=== PATIENT | female | born 2000 | race Hispanic/Latino ===

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

== ENCOUNTER → 2022-01-12 09:55 | Outpatient (CLI) | payer OTHER, MEDICAID, SELFPAY ==
[2021-09-16 09:42] VITALS: BMI 25.2
[2022-01-12 18:56] LABS: Add Manual Diff / Slide Review NO; Basophils Absolute Auto 0 /uL (0-100); Basophils Percent Auto 0.5 % (0-2); Eosinophils Absolute Auto 100 /uL (0-450); Hematocrit 33.8 % (36-46); Lymphocytes Absolute Auto 1100 /uL (1100-4500); Lymphocytes Percent Auto 27.4 % (25-40); Mean Corpuscular HGB Conc 32.5 % (30-36); Mean Corpuscular Hemoglobin 25.8 PG (26-34); Mean Corpuscular Volume 79.2 fL (80-100); Monocytes Absolute Auto 300 /uL (0-900); Monocytes Percent Auto 8.3 % (3-14); Neutrophils Absolute Auto 2500 /uL (1500-7000); Neutrophils Percent Auto 61.8 % (50-75); Platelet Count 201 X10^3/uL (150-400); Red Blood Cell Count 4.26 X10^6/uL (4.0-5.2); Red Cell Distribution Width 16.5 % (11.6-14.8)
[2022-01-12 18:58] LABS: Alanine Aminotransferase 9 IU/L (<35); Albumin 3.9 g/dL (3.5-5.0); Albumin Globulin Ratio 1.4 (1.0-2.8); Alkaline Phosphatase 54 U/L (38-126); Aspartate Aminotransferase 24 IU/L (14-36); BUN Creatinine Ratio 14.5 (6-22); Bilirubin Total 0.5 mg/dL (0.2-1.3); Blood Urea Nitrogen 8 mg/dL (7-17); Carbon Dioxide 23 mmol/L (22-32); Chloride 107 mmol/L (98-107); Estimated Glomerular Filt Rate > 60 mL/min (>60); Globulin 2.7 g/dL (1.7-4.1); Glucose 85 mg/dL (70-100); HEMOLYSIS < 15 (0-50); Potassium 4.1 mmol/L (3.4-5.1); Sodium 138 mmol/L (137-145); Total Protein 6.6 g/dL (6.3-8.2)
[2022-01-12 19:25] LABS: TSH w/ Reflex to FT4 1.29 uIU/mL (0.47-4.68)
== END ==
PROVIDERS: PCP Physician Assistant; Visit Provider Physician Assistant
DX: R42 Dizziness and giddiness (principal); R63.0 Anorexia; R63.4 Abnormal weight loss
CPT/HCPCS: 80053; 84443; 85025

== ENCOUNTER → 2022-04-08 13:59 | Outpatient (CLI) | payer OTHER, MEDICAID, SELFPAY ==
[2021-09-16 09:42] VITALS: BMI 25.2
[2022-04-08 20:37] LABS: Hematocrit 35.5 % (36-46); Hemoglobin 11.5 g/dL (12.0-16.0); Mean Corpuscular HGB Conc 32.4 % (30-36); Mean Corpuscular Hemoglobin 25.2 PG (26-34); Mean Corpuscular Volume 77.9 fL (80-100); Platelet Count 256 X10^3/uL (150-400); Red Blood Cell Count 4.55 X10^6/uL (4.0-5.2); Red Cell Distribution Width 18.4 % (11.6-14.8)
[2022-04-08 20:42] LABS: Pregnancy Test Serum,Qual Negative (Negative)
[2022-04-08 20:43] LABS: HEMOLYSIS 20 (0-50); Iron 42 ug/dL (37-170)
[2022-04-08 20:55] LABS: Percent Iron Saturation 10 % (15-50); Total Iron Binding Capacity 432 ug/dL (265-497); Transferrin 325 mg/dL (206-381)
[2022-04-08 21:15] LABS: Ferritin 6 ng/mL (6-137)
[2022-04-08 22:12] LABS: Neutrophils Absolute Manual 3660 /uL (3000-5900); RBC Morphology Normal Morphology; Total Cells Counted 100
== END ==
PROVIDERS: PCP Physician Assistant; Visit Provider Physician Assistant
DX: D64.9 Anemia, unspecified (principal)
CPT/HCPCS: 82728; 83540; 83550; 84703; 85025

== ENCOUNTER → 2022-05-12 11:50 | Outpatient (CLI) | payer OTHER, MEDICAID, SELFPAY ==
[2021-09-16 09:42] VITALS: BMI 25.2
[2022-05-12 19:30] LABS: Add Manual Diff / Slide Review NO; Basophils Absolute Auto 0 /uL (0-100); Basophils Percent Auto 0.2 % (0-2); Eosinophils Absolute Auto 0 /uL (0-450); Eosinophils Percent Auto 0.4 % (2-4); Hemoglobin 10.9 g/dL (12.0-16.0); Lymphocytes Absolute Auto 1100 /uL (1100-4500); Lymphocytes Percent Auto 18.8 % (25-40); Mean Corpuscular Hemoglobin 25.4 PG (26-34); Mean Corpuscular Volume 76.9 fL (80-100); Monocytes Absolute Auto 400 /uL (0-900); Monocytes Percent Auto 6.7 % (3-14); Neutrophils Absolute Auto 4400 /uL (1500-7000); Neutrophils Percent Auto 73.9 % (50-75); Platelet Count 202 X10^3/uL (150-400); Red Blood Cell Count 4.29 X10^6/uL (4.0-5.2); Red Cell Distribution Width 19.1 % (11.6-14.8); White Blood Cell Count 5.9 X10^3/uL (4.5-11.0)
[2022-05-12 20:22] LABS: HCG Quantitative /Beta subunit 7095 mIU/mL
== END ==
PROVIDERS: PCP Physician Assistant; Visit Provider Physician Assistant
DX: R10.2 Pelvic and perineal pain (principal); D64.9 Anemia, unspecified; Z34.90 Encounter for supervision of normal pregnancy, unspecified, unspecified trimester
CPT/HCPCS: 81002; 81025; 84702; 85025; 87086

== ENCOUNTER → 2022-05-13 13:04 | Outpatient (CLI) | payer OTHER, MEDICAID, SELFPAY ==
[2021-09-16 09:42] VITALS: BMI 25.2
[2022-05-13 19:50] LABS: HCG Quantitative /Beta subunit 8893 mIU/mL
== END ==
PROVIDERS: PCP Physician Assistant; Visit Provider Physician Assistant
DX: R10.2 Pelvic and perineal pain (principal); Z3A.01 Less than 8 weeks gestation of pregnancy
CPT/HCPCS: 84702

== ENCOUNTER → 2022-05-19 09:05 | Outpatient (CLI) | payer OTHER, MEDICAID, SELFPAY ==
[2021-09-16 09:42] VITALS: BMI 25.2
[2022-05-20 20:25] LABS: HCG Quantitative /Beta subunit 11694 mIU/mL
== END ==
PROVIDERS: PCP Physician Assistant; Visit Provider Physician Assistant
DX: R10.2 Pelvic and perineal pain (principal); Z3A.01 Less than 8 weeks gestation of pregnancy
CPT/HCPCS: 84702

== ENCOUNTER 2022-05-22 23:42 | Emergency (ER) | payer OTHER, MEDICAID, SELFPAY ==
[2021-09-16 09:42] VITALS: BMI 25.2
[2022-05-22 23:59] VITALS: O2SAT 97
[2022-05-23] VITALS: BP 115/70; PULSE 79; O2SAT 100
[2022-05-23 00:30] LABS: Appearance Urine UA CLEAR; Bilirubin Urine UA NEGATIVE (NEGATIVE); Color Urine UA YELLOW; Glucose Urine UA NEGATIVE (Negative); Ketones Urine UA NEGATIVE (NEGATIVE); Leukocyte Esterase Urine UA NEGATIVE (NEGATIVE); Nitrite Urine UA NEGATIVE (Negative); Occult Blood Urine UA 3+ (Negative); Protein Urine UA NEGATIVE (Negative); Specific Gravity Urine UA <=1.005 (1.000-1.035); Urobilinogen Urine UA 0.2 E.U./dL (0.2)
[2022-05-23 00:39] LABS: Add Manual Diff / Slide Review NO; Basophils Absolute Auto 0 /uL (0-100); Basophils Percent Auto 0.5 % (0-2); Eosinophils Absolute Auto 100 /uL (0-450); Eosinophils Percent Auto 0.6 % (2-4); Hematocrit 35.4 % (36-46); Hemoglobin 11.9 g/dL (12.0-16.0); Lymphocytes Absolute Auto 2400 /uL (1100-4500); Lymphocytes Percent Auto 24.8 % (25-40); Mean Corpuscular HGB Conc 33.6 % (30-36); Mean Corpuscular Hemoglobin 25.8 PG (26-34); Monocytes Absolute Auto 900 /uL (0-900); Monocytes Percent Auto 8.7 % (3-14); Neutrophils Absolute Auto 6400 /uL (1500-7000); Neutrophils Percent Auto 65.4 % (50-75); Platelet Count 216 X10^3/uL (150-400); Red Cell Distribution Width 19.5 % (11.6-14.8); White Blood Cell Count 9.8 X10^3/uL (4.5-11.0)
--- NOTE | 2022-05-23 00:44 | ED_ITS ---
HPI - General Adult General Chief complaint: OB/Uterine Contractions Stated complaint: 6 weeks /spotting Time Seen by Provider: 05/23/22 00:00 Source: patient Mode of arrival: Ambulatory History of Present Illness HPI narrative: Patient is a at approximately 6 weeks EGA who is here for evaluation of vaginal bleeding last night. She has had prior evaluations by her primary doctor with beta hCG testing. She was told that everything looked ?okay ?this evening she went to use the restroom and had quite a bit of vaginal bleeding. She states it was as much as a menstrual cycle. She did have to wear a pad. She did go to the bathroom just prior to my evaluation she states that everything seems to have stopped. Some minor abdominal discomfort. No fevers. No urinary symptoms. She states she has had some issues with constipation recently. Related Data Previous Rx's Medication Instructions Recorded norgestimate-ethinyl estradiol 1 tab PO DAILY #28 tabs 09/14/21 0.18 mg/0.215mg/0.25mg-35 mcg(28)tablet (Ortho Tri-Cyclen (28)) sertraline 100 mg tablet 100 mg PO DAILY #30 tabs 09/14/21 Allergies Allergy/AdvReac Type Severity Reaction Status Date / Time No Known Drug Allergies Allergy Verified 01/12/22 09:04 Review of Systems Review of Systems ROS Unobtainable: All systems reviewed & are unremarkable except as noted in HPI and below Patient History Medical History Depression Suicidal ideation Surgical History H/O thumb surgery Family History Grandfather Myocardial infarction Grandmother Diabetes mellitus Father Medical history unknown Mother Alive and well Social History household members: family and other Smoking Status: Never smoker alcohol intake: former Smoking Status: Never smoker Substance Use Type: does not use Exam Initial Vital Signs Initial Vital Signs: Vital Signs Pulse Oximetry 97 05/22/22 23:59 HENMT Head: normal to inspection and normocephalic Resp Effort & Inspection: normal respiratory effort Cardio Rate: regular rate GI Inspection: normal to inspection Skin General: no rashes or lesions noted Neuro General: patient alert, patient awake and moves all extremities Extrem General: normal to inspection and capillary refill normal Course Orders Ordered: ED Orders 05/23/22 00:04 Urinalysis and Microscopic Stat 05/23/22 00:15 ABO RH Type Stat Basic Metabolic Panel Stat Complete Blood Count AUTO DIFF Stat HCG Quantitative /Beta subunit Stat Vital Signs Vital signs: Vital Signs - 8 hr 05/22/22 23:59 05/23/22 00:00 05/23/22 00:00 Temperature Pulse Rate 79 Respiratory Rate Blood Pressure 115/70 Pulse Oximetry 97 100 Oxygen Delivery Method 05/23/22 01:52 Temperature 98.4 F Pulse Rate 77 Respiratory Rate 16 Blood Pressure 111/77 Pulse Oximetry 99 Oxygen Delivery Method Room Air Medical Decision Making Lab Data Lab results reviewed: Yes I reviewed the patient's lab results. Result diagrams: 05/23/22 00:15 05/23/22 00:15 Labs: Lab Results 05/23/22 05/23/22 05/23/22 Range/Units 00:04 00:15 00:15 WBC 9.8 (4.5-11.0) X10^3/uL RBC 4.60 (4.0-5.2) X10^6/uL Hgb 11.9 L (12.0-16.0) g/dL Hct 35.4 L (36-46) % MCV 77.0 L (80-100) fL MCH 25.8 L (26-34) PG MCHC 33.6 (30-36) % RDW 19.5 H (11.6-14.8) % Plt Count 216 (150-400) X10^3/uL Neut % (Auto) 65.4 (50-75) % Lymph % (Auto) 24.8 L (25-40) % [place] % (Auto) 8.7 (3-14) % Eos % (Auto) 0.6 L (2-4) % Baso % (Auto) 0.5 (0-2) % Neut # (Auto) 6400 (9868-1440) /uL Lymph # (Auto) 2400 (2541-8117) /uL [place] # (Auto) 900 (0-900) /uL Eos # (Auto) 100 (0-450) /uL Baso # (Auto) 0 (0-100) /uL Sodium 138 (137-145) mmol/L Potassium 3.5 (3.4-5.1) mmol/L Chloride 104 (98-107) mmol/L Carbon Dioxide 23 (22-32) mmol/L BUN 5 L (7-17) mg/dL Creatinine 0.45 L (0.52-1.04) mg/dL Estimated GFR > 60 (>60) mL/min BUN/Creatinine Ratio 11.1 (6-22) Glucose 90 (70-100) mg/dL Calcium 9.4 (8.4-10.2) mg/dL HCG, Quant 7724.7 mIU/mL Urine Color Yellow Urine Appearance Clear Urine pH 7.0 (4.5-8.0) Ur Specific [place] <=1.005 (1.000-1.035) Urine Protein Negative (Negative) Urine Glucose (UA) Negative (Negative) g/dL Urine Ketones Negative (NEGATIVE) Urine Occult Blood 3+ H (Negative) Urine Nitrate Negative (Negative) Urine Bilirubin Negative (NEGATIVE) Urine Urobilinogen 0.2 (0.2) E.U./dL Ur Leukocyte Esterase Negative (NEGATIVE) Urine RBC None seen (0-5/HPF) Urine WBC None seen (0-5/HPF) Urine Bacteria None seen (None) Ur Culture Indicated? Cult not indicated Blood Type 05/23/22 Range/Units 00:15 WBC (4.5-11.0) X10^3/uL RBC (4.0-5.2) X10^6/uL Hgb (12.0-16.0) g/dL Hct (36-46) % MCV (80-100) fL MCH (26-34) PG MCHC (30-36) % RDW (11.6-14.8) % Plt Count (150-400) X10^3/uL Neut % (Auto) (50-75) % Lymph % (Auto) (25-40) % [place] % (Auto) (3-14) % Eos % (Auto) (2-4) % Baso % (Auto) (0-2) % Neut # (Auto) (5509-0543) /uL Lymph # (Auto) (5987-4773) /uL [place] # (Auto) (0-900) /uL Eos # (Auto) (0-450) /uL Baso # (Auto) (0-100) /uL Sodium (137-145) mmol/L Potassium (3.4-5.1) mmol/L Chloride (98-107) mmol/L Carbon Dioxide (22-32) mmol/L BUN (7-17) mg/dL Creatinine (0.52-1.04) mg/dL Estimated GFR (>60) mL/min BUN/Creatinine Ratio (6-22) Glucose (70-100) mg/dL Calcium (8.4-10.2) mg/dL HCG, Quant mIU/mL Urine Color Urine Appearance Urine pH (4.5-8.0) Ur Specific [place] (1.000-1.035) Urine Protein (Negative) Urine Glucose (UA) (Negative) g/dL Urine Ketones (NEGATIVE) Urine Occult Blood (Negative) Urine Nitrate (Negative) Urine Bilirubin (NEGATIVE) Urine Urobilinogen (0.2) E.U./dL Ur Leukocyte Esterase (NEGATIVE) Urine RBC (0-5/HPF) Urine WBC (0-5/HPF) Urine Bacteria (None) Ur Culture Indicated? Blood Type O Positive Urine Dip Bedside Urine Glucose Negative Bedside Urine Bilirubin - Negative Bedside Urine Ketone - Negative Urine Specific [place] 1.010 Bedside Urine Occult Blood +++ Bedside Urine pH 7 Bedside Urine Protein - Negative Bedside Urine Urobilinogen - Negative Bedside Urine Nitrite - Negative Bedside Urine Leukocytes - Negative Esterase Point of care testing: Urine Dip Bedside Urine Glucose Negative Bedside Urine Bilirubin - Negative Bedside Urine Ketone - Negative Urine Specific [place] 1.010 Bedside Urine Occult Blood +++ Bedside Urine pH 7 Bedside Urine Protein - Negative Bedside Urine Urobilinogen - Negative Bedside Urine Nitrite - Negative Bedside Urine Leukocytes - Negative Esterase [facility] Narrative Medical decision making narrative: Review of the patient's beta hCG shows that the last 1 was greater than 11,000. Today it is 7000. She is a benign exam. She is Rh positive. She is no longer having any bleeding. Had a discussion with her and family at bedside. We did discuss that according to the beta HCG levels in her presenting symptoms the concern is for a miscarriage. She already has an appointment with her primary doctor on Tuesday of next week which is a good point that there can be a repeat beta hCG level at that point for trending to 0. She was given return preca utions. She expressed understanding and agreement. Discharge Plan Departure Patient Disposition: Home Clinical Impression: Threatened miscarriage Instructions: DI for Miscarriage, DI for Vaginal Bleeding During Activity Restrictions/Additional Instructions: Your blood type is O positive. I do recommend that you keep your appointment with your doctor that is already scheduled for Tuesday for a follow-up. Return to the emergency department for any new or worsening symptoms. Prescriptions: No Action sertraline 100 mg tablet 100 mg PO DAILY Qty: 30 5RF norgestimate-ethinyl estradiol [Ortho Tri-Cyclen (28)] 0.18/0.215/0.25 mg-35 mcg (28) tablet 1 tab PO DAILY Qty: 28 11RF Referrals: Gretta Wilkins PA-C [Primary Care Provider] - Visit Report Forms: Patient Portal/API
[2022-05-23 00:50] LABS: BUN Creatinine Ratio 11.1 (6-22); Blood Urea Nitrogen 5 mg/dL (7-17); Calcium 9.4 mg/dL (8.4-10.2); Carbon Dioxide 23 mmol/L (22-32); Chloride 104 mmol/L (98-107); Estimated Glomerular Filt Rate > 60 mL/min (>60); Glucose 90 mg/dL (70-100); HEMOLYSIS < 15 (0-50); Potassium 3.5 mmol/L (3.4-5.1); Sodium 138 mmol/L (137-145)
[2022-05-23 01:06] LABS: HCG Quantitative /Beta subunit 7724.7 mIU/mL
[2022-05-23 01:41] LABS: Bacteria Urine None Seen; Culture Indicated Urine Cult Not Indicated; RBC Urine None Seen (0-5/HPF); WBC Urine None Seen (0-5/HPF)
[2022-05-23 01:52] VITALS: BP 111/77; PULSE 77; RESP 16; TEMP 36.9; O2SAT 99
== END 2022-05-23 02:07 | disposition home or self-care (01) ==
PROVIDERS: Emergency Provider Emergency Medicine; PCP Physician Assistant
DX: O20.0 Threatened abortion (principal); Z3A.01 Less than 8 weeks gestation of pregnancy
CPT/HCPCS: 80048; 81001; 81003; 84702; 85025; 86900; 86901; 99282; 99283

== ENCOUNTER → 2022-05-25 09:07 | Outpatient (CLI) | payer OTHER, MEDICAID, SELFPAY ==
[2021-09-16 09:42] VITALS: BMI 25.2
[2022-05-25 20:16] LABS: HCG Quantitative /Beta subunit 7585.9 mIU/mL
== END ==
PROVIDERS: PCP Physician Assistant; Visit Provider Physician Assistant
DX: O20.0 Threatened abortion (principal)
CPT/HCPCS: 84702

== ENCOUNTER 2022-05-26 14:08 | Emergency (ER) | payer OTHER, MEDICAID, SELFPAY ==
[2021-09-16 09:42] VITALS: BMI 25.2
[2022-05-26 14:48] VITALS: BP 107/70; PULSE 77; RESP 16; TEMP 36.7; O2SAT 99; BMI 20.1
--- NOTE | 2022-05-26 15:27 | DI.US.S_ITS ---
PROCEDURE: US PELVIC COMPLETE INDICATIONS: PAIN, BLEEDING; RECENT SAB TECHNIQUE: Real-time scanning was performed of the pelvic organs, with image documentation. Additional endovaginal scanning was necessary due to incomplete visualization of the adnexal and endometrial structures by transabdominal scanning. COMPARISON: None. FINDINGS: Uterus: 7.6 x 5.2 x 5.8 cm. The endometrium is heterogeneous measuring up to 22 mm. No definite vascularity. Ovaries: The right ovary measures 1.7 x 2.7 x 1.3 cm. Volume is 3 cc. The left ovary measures 4.6 x 5.4 x 3.8 cm, the volume is 49 cc. There is a simple appearing cyst that measures up to 4.9 cm. Per current guidelines in a premenopausal patient, no dedicated follow-up is necessary. Other: No pathologic free abdominal or pelvic fluid. IMPRESSION: Heterogeneous thickened endometrium up to 2.2 cm. Differential includes large blood clots or retained products of conception, with underlying thickened endometrium. Although lack of vascular Doppler signal is reassuring, gynecologic and/or imaging follow-up is still suggested depending on clinical context. We strive to produce accurate, complete, and clear reports of imaging services. To assist us in improving patient care, this report was composed using standard report templates and voice recognition software. Therefore, it may contain abnormal punctuation, insertions and/or omissions. Occasional wrong-word or sound-alike substitutions may occur. Though we review the report and make efforts to correct it, we do recommend that the report be read carefully in proper context to recognize any text inaccuracies. Dictated by: Yuriy Spicer M.D. on 05/26/2022 at 16:31 Approved by: Yuriy Spicer M.D. on 05/26/2022 at 16:37
[2022-05-26 17:19] VITALS: PULSE 95
--- NOTE | 2022-05-26 17:24 | ED.PREGNANCY ---
HPI - General Chief complaint: Vaginal Bleeding Stated complaint: possible misscarriage refered by doctor Time Seen by Provider: 05/26/22 16:58 Source: patient Mode of arrival: Ambulatory History of Present Illness HPI Narrative: Patient is a 22-year-old female presenting today with some mild abdominal cramping. She is known to be . She was seen evaluated here on May 21 approximately 6 weeks EGA. At that time she had a large amount of bleeding but did then seemed to stop. She has since had some spotting. HCG on May 21 was 8000. HCG has actually been decreasing since yesterday it was rechecked and is 7500. She has only had some minor spotting. No significant bleeding she had minimal cramping today. No fever or chills. No nausea vomiting or other symptoms. She was called by Ob today no pelvic ultrasound has yet to be done hCG is still elevated concerned that patient may have a possible ectopic. Related Data Previous Rx's Medication Instructions Recorded sertraline 100 mg tablet 100 mg PO DAILY #30 tabs 09/14/21 Allergies Allergy/AdvReac Type Severity Reaction Status Date / Time No Known Drug Allergies Allergy Verified 05/25/22 08:44 Review of Systems Review of Systems Narrative: GENERAL: Denies chills, fatigue, malaise, fever, sweats, travel HEENT: Denies sinus pain, ear pain, sore throat, difficulty swallowing, neck pain RESPIRATORY: Denies dyspnea, cough, wheezing, hemoptysis, sputum. CARDIOVASCULAR: Denies chest pain, palpitations, orthopnea, edema GASTROINTESTINAL: Denies nausea, vomiting, abdominal pain, diarrhea, constipation, melena. : Denies dysuria, frequency, incontinence, hematuria, urinary retention, flank pain. [employer]: See HPI MUSCULOSKELETAL: Denies weakness, joint pain, or bony pain SKIN: No rash, no erythema, no pruritus NEUROLOGIC: Denies weakness, dizziness, headache, numbness, change in speech, confusion PSYCHIATRIC: No concerning psychosocial issues. 12 point review of systems is negative except for those stated above and HPI Exam Initial Vital Signs Initial Vital Signs: Vital Signs Temperature 98.1 F 05/26/22 14:48 Pulse Rate 77 05/26/22 14:48 Respiratory Rate 16 05/26/22 14:48 Blood Pressure 107/70 05/26/22 14:48 Pulse Oximetry 99 05/26/22 14:48 Oxygen Delivery Method 05/26/22 14:48 GENERAL: Alert well female appears very well no acute distress HEENT: Head atraumatic,EOMI, pupils reactive CARDIOVASCULAR: Regular rate and rhythm without murmurs, rubs or gallops. RESPIRATORY: Breath sounds equal bilaterally, no wheezes rales or rhonchi. ABDOMEN: Soft, nontender. Normoactive bowel sounds all 4 quadrants. No guarding or rebound. EXTREMITIES: Normal range of motion, no clubbing or edema. Neurovascularly intact NEUROLOGICAL: Alert and oriented x4.Normal gait and speech. SKIN: Warm, dry, no laceration, no petechiae, no rashes or lesions. Course Orders Ordered: ED Orders 05/26/22 15:27 US pelvic complete Stat 05/26/22 17:40 Ictotest Urine Stat Urine Culture Stat Urine Microscopic Stat Vital Signs Vital signs: Vital Signs - 8 hr 05/26/22 14:48 05/26/22 17:19 Temperature 98.1 F Pulse Rate 77 95 H Respiratory Rate 16 Blood Pressure 107/70 Pulse Oximetry 99 Oxygen Delivery Method Room Air MDM - OB/Uterine Contractions Lab Data Labs: Lab Results 05/26/22 Range/Units 17:40 Ur Bilirubin Confirm Negative (Negative) Urine RBC 0-1/hpf (0-5/HPF) Urine WBC 0-1/hpf (0-5/HPF) Ur Squamous Epith Cells 10-30 /hpf H D (0-5/HPF) Urine Bacteria None seen (None) Ur Culture Indicated? Cult not indicated Urine Dip Bedside Urine Glucose Negative Bedside Urine Bilirubin + 1 Bedside Urine Ketone + 15 Urine Specific [place] 1.020 Bedside Urine Occult Blood +++ Bedside Urine pH 6.0 Bedside Urine Protein + 30 Bedside Urine Urobilinogen - Negative Bedside Urine Nitrite - Negative Bedside Urine Leukocytes + 70 Esterase Imaging Data US - [employer]: Radiologist's Impression: atient: Emanuel Rodriguez MR#: [id number] : 2000 Acct:[id number] Age/Sex: 22 / F Date of Service: 05/26/22 Loc: ED Accession Number: [id number] ?? Procedure: US pelvic complete Ordering Provider: Sendy Stephens D.O. PROCEDURE:? US PELVIC COMPLETE ? INDICATIONS:? PAIN, BLEEDING; RECENT SAB ? TECHNIQUE:? Real-time scanning was performed of the pelvic organs, with image documentation.? Additional endovaginal scanning was necessary due to incomplete visualization of the adnexal and endometrial structures by transabdominal scanning.? ? COMPARISON:? None. ? FINDINGS:? ?? Uterus:? 7.6 x 5.2 x 5.8 cm.? The endometrium is heterogeneous measuring up to 22 mm.? No definite vascularity.? ? Ovaries:? The right ovary measures 1.7 x 2.7 x 1.3 cm.? Volume is 3 cc.? The left ovary measures 4.6 x 5.4 x 3.8 cm, the volume is 49 cc.? There is a simple appearing cyst that measures up to 4.9 cm.? Per current guidelines in a premenopausal patient, no dedicated follow-up is necessary.? ? Other:? No pathologic free abdominal or pelvic fluid. ? ? IMPRESSION:? Heterogeneous thickened endometrium up to 2.2 cm.? Differential includes large blood clots or retained products of conception, with underlying thickened endometrium.? Although lack of vascular Doppler signal is reassuring, gynecologic and/or imaging follow-up is still suggested depending on clinical context. ? We strive to produce accurate, complete, and clear reports of imaging services. To assist us in improving patient care, this report was composed using standard report templates and voice recognition software. Therefore, it may contain abnormal punctuation, insertions and/or omissions. Occasional wrong-word or sound-alike substitutions may occur. Though we review the report and make efforts to correct it, we do recommend that the report be read carefully in proper context to recognize any text inaccuracies. ? ? Dictated by: Yuriy Spicer M.D. on 05/26/2022 at 16:31 ? ? Approved by: Yuriy Spicer M.D. on 05/26/2022 at 16:37 ? MDM Narrative Medical decision making narrative: Patient overall appears well. She has not had any further significant bleeding since she had a lot of bleeding on the . She has had some mild abdominal cramping. There is no pelvic ultrasound she does have decreasing hCG but not quite a lot. Ultrasound today does not show an IUP or any ectopic. Probably an incomplete miscarriage. Dr. Dykes, no he in ED to see and evaluate patient. At this time she states patient can be discharged she will follow them closely as an outpatient. Discharge Plan Departure Patient Disposition: Home Clinical Impression: Incomplete miscarriage Instructions: DI for Miscarriage Activity Restrictions/Additional Instructions: *You have been diagnosed with miscarriage *What to do: At this time it is likely that you have missed. Please follow-up OB recommendations. May need to have D&C Expect to have more cramping and bleeding at some point. *Continue to take medications as directed Tylenol 1000 mg every 6 hours Ibuprofen 800 mg every 8 hours *Call [phone] for close follow-up *Return to ER if you should have bleeding more than 2 pads in 1 hour, increased significant pain and cramping, dizziness lightheadedness [or] any new, worsening or concerning symptoms Prescriptions: No Action sertraline 100 mg tablet 100 mg PO DAILY Qty: 30 5RF Referrals: Jsesica Dykes MD [Physician] - Gretta Wilkins PA-C [Primary Care Provider] -
[2022-05-26 18:28] LABS: Bacteria Urine None Seen; Culture Indicated Urine Cult Not Indicated; Ictotest Urine Negative (Negative); RBC Urine 0-1/HPF (0-5/HPF); Squamous Epithelial Cell Urine 10-30 /HPF (0-5/HPF)
[2022-05-26 18:29] LABS: WBC Urine 0-1/HPF (0-5/HPF)
--- NOTE | 2022-05-26 22:38 | P.CONS_ITS ---
History of Present Illness Consult details Date Patient Seen: 05/26/22 Time Patient Seen: 18:30 Chief complaint: possible misscarriage refered by doctor Reason for consult: possible miscarriage Requesting provider: Sendy Stephens Narrative: 22 yo G0 recently conceived on OCPs. LMP on OCPs was 04/03. No menses in April. At time of her expected menses in late April, she Had some severe cramping, and presented to her PCP where test was performed and was positive. Patient had serial HCG quant which showed initially slow increase from 7000 to 8000, then peaked at 11,000. on 05/19/2022, she presented to the ED with heavy vaginal bleeding, which then resolved on arrival to the ED. HCG quant in ED was 7000, decreasing from her last level 11,000. She was counseled on probable spontaneous miscarriage and recommended to keep her scheduled follow-up ultrasound with her PCP. No ultrasound performed at that time. Patient has not had any ultrasounds to date. She reports to me that at the time she came to the ED on 05/19, she had heavy bleeding in to her underwear. She did not have any pads with her at the time, so soak the underwear, wants without recurrence. She did not see any clots or tissue. No recurrent bleeding since, except for a little spotting yesterday. Patient seen by PCP today with report of right lower quadrant discomfort. Due to the plateauing hCG level, right lower quadrant pain in recent bleeding, she was sent in for further evaluation to rule out ectopic . Patient reports that her right lower quadrant pain has resolved. No cramping and no bleeding now. HCG quant: On 05/12 7,095 May 1 8,893 Sept7 11,694 Sept11 7,724 7,585 Meds Home Medications and Allergies Home Medications Medication Instructions Recorded Confirmed Type sertraline 100 mg tablet 100 mg PO DAILY #30 tabs 09/14/21 05/25/22 Rx Allergies Allergy/AdvReac Type Severity Reaction Status Date / Time No Known Drug Allergies Allergy Verified 05/25/22 08:44 Exam Vital Signs (past 8 hours): - 05/26/22 14:48 05/26/22 17:19 Temperature 98.1 F Pulse Rate 77 95 H Respiratory Rate 16 Blood Pressure 107/70 Pulse Oximetry 99 Oxygen Delivery Method Room Air Oxygen Delivery Method Room Air Narrative Exam Narrative: General: Well-appearing female in no acute distress Objective Imaging US - abdomen: My impression: nonviable , probable intra-uterine incomplete ab. 6 mm anechoic area seen within the heterogeneous endometrium, possible prior gestational sac. No normal appearing gestational sac. No pole, no yolk sac. Radiologist's impression: PROCEDURE:? US PELVIC COMPLETE ? INDICATIONS:? PAIN, BLEEDING; RECENT SAB ? TECHNIQUE:? Real-time scanning was performed of the pelvic organs, with image documentation.? Additional endovaginal scanning was necessary due to incomplete visualization of the adnexal and endometrial structures by transabdominal scanning.? ? COMPARISON:? None. ? FINDINGS:? ?? Uterus:? 7.6 x 5.2 x 5.8 cm.? The endometrium is heterogeneous measuring up to 22 mm.? No definite vascularity.? ? Ovaries:? The right ovary measures 1.7 x 2.7 x 1.3 cm.? Volume is 3 cc.? The left ovary measures 4.6 x 5.4 x 3.8 cm, the volume is 49 cc.? There is a simple appearing cyst that measures up to 4.9 cm.? Per current guidelines in a premenopausal patient, no dedicated follow-up is necessary.? ? Other:? No pathologic free abdominal or pelvic fluid. ? ? IMPRESSION:? Heterogeneous thickened endometrium up to 2.2 cm.? Differential includes large blood clots or retained products of conception, with underlying thickened endometrium.? Although lack of vascular Doppler signal is reassuring, gynecologic and/or imaging follow-up is still suggested depending on clinical context. ? We strive to produce accurate, complete, and clear reports of imaging services. To assist us in improving patient care, this report was composed using standard report tem plates and voice recognition software. Therefore, it may contain abnormal punctuation, insertions and/or omissions. Occasional wrong-word or sound-alike substitutions may occur. Though we review the report and make efforts to correct it, we do recommend that the report be read carefully in proper context to recognize any text inaccuracies. ? ? Dictated by: Yuriy Spicer M.D. on 05/26/2022 at 16:31 ? ? Approved by: Yuriy Spicer M.D. on 05/26/2022 at 16:37 ? Labs Labs: Laboratory Results - last 24 hr 05/26/22 17:40 Ur Bilirubin Confirm Negative Urine RBC 0-1/hpf Urine WBC 0-1/hpf Ur Squamous Epith Cells 10-30 /hpf H D Urine Bacteria None seen Ur Culture Indicated? Cult not indicated PFSH Medical History (Updated 05/26/22 @ 22:59 by Jessica Dykes MD) Depression , location unknown Suicidal ideation Surgical History H/O thumb surgery Family History Grandfather Myocardial infarction Grandmother Diabetes mellitus Father Medical history unknown Mother Alive and well Social History household members: family and other Tobacco & Substance Use Smoking Status: Never smoker alcohol intake: former Assessment & Plan Assessment and plan (1) Nonviable : Status: Acute Plan I informed patient with plateauing, decreasing HCG, nonviable . Essentially her HCG quants have been flat since 05/12. She did have 1 increased to 11,000 then back to 7000. Discussed with her between ultrasound findings and the stagnant or decreasing HCG quants, all consistent with anonviable . I discussed with HCG quant level, should see a viable within the uterus by now, and this is not the case. I discuss their is no signs of tubal ectopic on the ultrasound. With thickened heterogeneous tissue in the endometrium, and possible small gestational sac versus fluid collection, this appears most consistent with an intrauterine miscarriage. She did not see any tissue passed, only some blood in her pants, thus not consistent with a complete spontaneous A/ B. I discussed options of awaiting bleeding again for spontaneous A/B versus medication to help bring on a spontaneous AB versus suction D&C. Discussed consider suction D&C to obtain tissue for a definitive diagnosis as well. On discussing options, she would not want to pass the miscarriage on her own ideally, and does desire suction D&C. I will arrange from the office. She may need to be seen in the office as a new patient to schedule. blood type is Rh positive. Time Spent With Patient Critical Care time: I spent a total of [] minutes of critical care time on this patient's care today; this time is exclusive of procedural time.
== END 2022-05-26 19:00 | disposition home or self-care (01) ==
PROVIDERS: Emergency Provider Emergency Medicine; PCP Physician Assistant
DX: O03.4 Incomplete spontaneous abortion without complication (principal)
CPT/HCPCS: 76830; 76856; 81003; 81015; 87086; 93975; 99282; 99283

== ENCOUNTER 2022-06-03 14:06 | Day surgery (SDC) | payer OTHER, MEDICAID, SELFPAY ==
[2021-09-16 09:42] VITALS: BMI 25.2
[2022-06-02 14:44] VITALS: BMI 19.8
--- NOTE | 2022-06-03 | DI.US.S_ITS ---
PROCEDURE: US PELVIC COMPLETE INDICATIONS: evaluate for retained POC vs complete Ab TECHNIQUE: Real-time scanning was performed of the pelvic organs, with image documentation. Additional endovaginal scanning was necessary due to incomplete visualization of the adnexal and endometrial structures by transabdominal scanning. COMPARISON: [facility], US, US PELVIC COMPLETE, 05/26/2022, 15:44. FINDINGS: Uterus: Uterus is noted and normal in size at 7.5 x 3.6 x 4.7 cm. The myometrium is homogeneous. Heterogeneous material is seen within the lower uterine segment or cervix with mixed echogenicity. No internal vascularity is seen within this collection. Previously seen fundal endometrial thickening is no longer present. Ovaries: The right ovary measures 2.7 x 1 x 2.1 cm, with a calculated ovarian volume of 3.1 cc. The left ovary measures 3.1 x 1.9 x 3.1 cm, with a calculated ovarian volume of 9.5 cc. A left ovarian simple cyst measures 2.3 x 1.1 x 2.3 cm, decreased when compared to the prior ultrasound. Other: No pathologic free abdominal or pelvic fluid. IMPRESSION: 1. Heterogeneous mixed echogenicity material is seen within the endocervical canal or lower uterine segment endometrial canal, which may represent passing products of conception versus residual blood products. No internal vascularity is seen. 2. Left ovarian simple cyst has decreased in size, now measuring 2.3 cm. Findings were discussed with Dr. Dykes in person at the time of this dictation, and she was present during the ultrasound exam. We strive to produce accurate, complete, and clear reports of imaging services. To assist us in improving patient care, this report was composed using standard report templates and voice recognition software. Therefore, it may contain abnormal punctuation, insertions and/or omissions. Occasional wrong-word or sound-alike substitutions may occur. Though we review the report and make efforts to correct it, we do recommend that the report be read carefully in proper context to recognize any text inaccuracies. Dictated by: Marvin Espinosa M.D. on 06/03/2022 at 16:47 Approved by: Marvin Espinosa M.D. on 06/03/2022 at 16:59
[2022-06-03 14:52] VITALS: BP 107/72; PULSE 72; RESP 20; TEMP 36.4; O2SAT 100; BMI 19.8
[2022-06-03 15:27] LABS: COVID19 -Nasal RAPID Negative (Negative)
[2022-06-03 17:22] LABS: Add Manual Diff / Slide Review NO; Basophils Absolute Auto 0 /uL (0-100); Basophils Percent Auto 0.6 % (0-2); Eosinophils Absolute Auto 0 /uL (0-450); Eosinophils Percent Auto 0.5 % (2-4); Hematocrit 33.7 % (36-46); Lymphocytes Absolute Auto 1500 /uL (1100-4500); Mean Corpuscular HGB Conc 32.6 % (30-36); Mean Corpuscular Hemoglobin 25.5 PG (26-34); Mean Corpuscular Volume 78.4 fL (80-100); Monocytes Absolute Auto 600 /uL (0-900); Monocytes Percent Auto 7.2 % (3-14); Neutrophils Absolute Auto 5500 /uL (1500-7000); Neutrophils Percent Auto 71.7 % (50-75); Platelet Count 213 X10^3/uL (150-400); Red Cell Distribution Width 19.8 % (11.6-14.8); White Blood Cell Count 7.7 X10^3/uL (4.5-11.0)
--- NOTE | 2022-06-03 17:25 | P.HPOB_ITS ---
History of Present Illness History of Present Illness Reason for admission: other (Miscarriage) Narrative: Emanuel Johnson is a 22 year old G0 female who presents for scheduled suction D&C for a missed Ab. She presents reporting possibly completing a spontaneous A/B. Missed Ab diagnosed last week by me in ED. Patient sent to ED due to right lower quadrant pain, with non rising HCGs, and a prior episode of light bleeding. she had not had a prior ultrasound. Ultrasound showed thickened heterogeneous endometrium, consistent with possible retained products of conception versus clot.No signs of ectopic pregnancyon on the ultrasound. Given report of not passing prior tissue, ultrasound and hCG is were consistent with missed A/B. She was not acutely bleeding and options reviewed with her. She desired scheduling a D&C. she was scheduled for today. She had called yesterday with onset of heavy bleeding and passing clots with severe cramping. She reported the bleeding had started the night prior, (thus 2 nights ago) with the bleeding heaviest at that time. The next day, yesterday when she called, she had a repeat episode of heavy bleeding and passing clots. Cramping was severe at that time. She inquired what to do. I advised her that she had the option of going ahead and having a spontaneous, miscarriage since her bleeding was not too heavy by her report, or if she still desired proceeding with D&C due to severe to the cramping, then to come to the hospital. I advised her if she did start bleeding 2 pads per hour, then she did need to come in. She decided she would likely try to come in the hospital due to the severe cramping, but asked if she did not come( taking a ferry from the [place]) whether she could keep the procedure today. I advised her we would keep it scheduled, but come to the office in the morning so I could see how her bleeding and symptoms went overnight and do an US to see double check whether she passed everything or not. She was not able to get a [place] easily last night so she waited. Due to [place] cancellations and no service on the [place] this morning, she did not come in the office this morning and arrived late for her scheduled case today, as well. review her bleeding the past 2 days as above. She reports yesterday afternoon the bleeding decreased after few hours and cramping decreased. Reports the heavier day was a day prior. Reports this morning she again had a gush of blood on standing, now remainder of the day is light. Has not seen any more clot her tissue. After ultrasound now on repeat review she reports she always feels a gush when she has menstrual bleeding, bleeding this morning felt more like her normal menstrual flow. No cramping today. [facility] Medical History (Updated 06/04/22 @ 17:58 by Jessica Dykes MD) Depression , location unknown Suicidal ideation Surgical History H/O thumb surgery Family History Grandfather Myocardial infarction Grandmother Diabetes mellitus Father Medical history unknown Mother Alive and well Social History household members: family and other Smoking Status: Never smoker alcohol intake: former Meds Home Medications and Allergies Home Medications Medication Instructions Recorded Confirmed Type sertraline 100 mg tablet 100 mg PO DAILY #30 tabs 09/14/21 06/03/22 Rx Allergies Allergy/AdvReac Type Severity Reaction Status Date / Time No Known Drug Allergies Allergy Verified 06/03/22 14:51 Exam Vital Signs (past 8 hours): - 06/03/22 14:52 Temperature 97.6 F Pulse Rate 72 Respiratory Rate 20 Blood Pressure 107/72 Pulse Oximetry 100 Oxygen Delivery Method Room Air Oxygen Delivery Method Room Air Narrative Exam Narrative: General: Well-appearing female in no acute distress Objective Imaging US - abdomen: Radiologist's impression: [place] [address] Ultrasound Report Signed Patient: Emanuel Rodriguez MR#: [id number] : 2000 Acct:[id number] Age/Sex: 22 / F Date of Service: 06/03/22 Loc: OR Accession Number: [id number] ?? Procedure: US pelvic complete Ordering Provider: Jessica Dykes MD PROCEDURE:? US PELVIC COMPLETE ? INDICATIONS:? evaluate for retained POC vs complete Ab ? TECHNIQUE:? Real-time scanning was performed of the pelvic organs, with image documentation.? Additional endovaginal scanning was necessary due to incomplete visualization of the adnexal and endometrial structures by transabdominal scanning.? ? COMPARISON:? [facility], , PELVIC COMPLETE, 05/26/2022, 15:44. ? FINDINGS:? ?? Uterus:? Uterus is noted and normal in size at 7.5 x 3.6 x 4.7 cm. The myometrium is homogeneous. ? Heterogeneous material is seen within the lower uterine segment or cervix with mixed echogenicity.? No internal vascularity is seen within this collection.? Previously seen fundal endometrial thickening is no longer present. ? Ovaries:? The right ovary measures 2.7 x 1 x 2.1 cm, with a calculated ovarian volume of 3.1 cc. The left ovary measures 3.1 x 1.9 x 3.1 cm, with a calculated ovarian volume of 9.5 cc.? A left ovarian simple cyst measures 2.3 x 1.1 x 2.3 cm, decreased when compared to the prior ultrasound.? ? Other:? No pathologic free abdominal or pelvic fluid. ? ? IMPRESSION:? 1. Heterogeneous mixed echogenicity material is seen within the endocervical canal or lower uterine segment endometrial canal, which may represent passing products of conception versus residual blood products.? No internal vascularity is seen. 2. Left ovarian simple cyst has decreased in size, now measuring 2.3 cm.? ? Findings were discussed with Dr. Dykes in person at the time of this dictation, and she was present during the ultrasound exam. Labs Result Diagrams: 06/03/22 16:45 Labs: Laboratory Results - last 24 hr 06/03/22 14:40 SARS-CoV-2 (PCR) Negative Assessment & Plan Assessment and plan (1) Spontaneous : Status: Acute Assessment & Plan narrative: IV started and labs drawn as per preop orders while I was in another OR case. After review of patient's bleeding as per HPI and now overall decreased, discussed with her possible complete miscarriage versus incomplete. Stat ultrasound ordered with above results. I reviewed the ultrasound with the patient, somewhat equivocal though appears she passed a good amount of the tissue. Discussed with her tissue no longer seen in the upper uterus, but some tissue or clot seen in the lower uterine segment or cervix. With no vascular flow seen to the area this may be clot or some retained tissue yet. I discussed with ultrasound that definitive, up to the patient whether she desires proceeding with D&C today. I discussed there may still be some miscarriage tissue to remove, or I may just get some clot with the procedure. Either way within remove what is in the lower uterine segment or cervix. Alternatively option to follow her symptoms, she may have had a complete miscarriage or may proceed to just past a little more tissue to complete the miscarriage, and avoid a surgical procedure. Patient abated as She was nervous for the procedure and overall desired to avoid having a procedure if she went through the cramping heavy bleeding already and may have passed everything. At the same time since she lives on [place], as nervous to have heavy bleeding again. Ultimately with checking the ultrasound after her arrival and with late arrival today, with needing to wait now until another case finishes, she decided she did not want to proceed with D&C today, as she is nervous regarding missing the return [place]. I discussed with a complete miscarriage, she may continue to bleed like a menses now for about a week. Call or return for heavy bleeding or severe cramping. Recommended following HCG quant, hormone level down to negative. Can do this in her PCPs office where they were following the hCG. She desires progesterone IUD for contraception after HCG is negative, will schedule appointment in our office for IUD after HCG negative. Time Spent With Patient Time with patient: 30 to 49 minutes with 50% spent counseling/coordinating care Critical Care time: I spent a total of [] minutes of critical care time on this patient's care today; this time is exclusive of procedural time.
--- NOTE | 2022-06-03 17:28 | SUR.PREOP ---
1725 - Dr. Chiu notified nursing staff that patient's case is cancelled. Patient in agreement with this decision and wishes to go home. IV removed per protocol and patient taken out of building with all belongings in wheelchair by nursing staff.
== END 2022-06-03 17:26 | disposition home or self-care (01) ==
PROVIDERS: PCP Physician Assistant; Referring Provider Obstetrics & Gynecology; Visit Provider Obstetrics & Gynecology
DX: O02.1 Missed abortion (principal); Z3A.00 Weeks of gestation of pregnancy not specified; Z53.29 Procedure and treatment not carried out because of patient's decision for other reasons; Z20.822 Contact with and (suspected) exposure to COVID-19
CPT/HCPCS: 59820; 76830; 76856; 85025; 86850; 86900; 86901; 87635

== ENCOUNTER → 2022-06-10 09:05 | Outpatient (CLI) | payer OTHER, MEDICAID, SELFPAY ==
[2021-09-16 09:42] VITALS: BMI 25.2
[2022-06-10 19:10] LABS: Add Manual Diff / Slide Review NO; Basophils Absolute Auto 0 /uL (0-100); Basophils Percent Auto 0.4 % (0-2); Eosinophils Absolute Auto 100 /uL (0-450); Eosinophils Percent Auto 1.8 % (2-4); Hematocrit 33.6 % (36-46); Hemoglobin 11.2 g/dL (12.0-16.0); Lymphocytes Absolute Auto 1400 /uL (1100-4500); Lymphocytes Percent Auto 29.7 % (25-40); Mean Corpuscular HGB Conc 33.4 % (30-36); Mean Corpuscular Hemoglobin 25.9 PG (26-34); Mean Corpuscular Volume 77.5 fL (80-100); Monocytes Absolute Auto 200 /uL (0-900); Monocytes Percent Auto 5.2 % (3-14); Neutrophils Absolute Auto 2900 /uL (1500-7000); Neutrophils Percent Auto 62.9 % (50-75); Platelet Count 245 X10^3/uL (150-400); Red Blood Cell Count 4.33 X10^6/uL (4.0-5.2); Red Cell Distribution Width 18.8 % (11.6-14.8); White Blood Cell Count 4.6 X10^3/uL (4.5-11.0)
[2022-06-10 19:36] LABS: HCG Quantitative /Beta subunit 167.7 mIU/mL
[2022-06-10 19:55] LABS: Ferritin 6 ng/mL (6-137)
== END ==
PROVIDERS: PCP Physician Assistant; Visit Provider Physician Assistant
DX: O03.9 Complete or unspecified spontaneous abortion without complication (principal); D64.9 Anemia, unspecified; O02.89 Other abnormal products of conception; O03.4 Incomplete spontaneous abortion without complication
CPT/HCPCS: 82728; 84702; 85025

== ENCOUNTER → 2022-06-17 14:30 | Outpatient (CLI) | payer OTHER, MEDICAID, SELFPAY ==
[2022-06-14 08:58] VITALS: BMI 25.2
[2022-06-17 20:06] LABS: HCG Quantitative /Beta subunit 38.8 mIU/mL
== END ==
PROVIDERS: PCP Physician Assistant; Visit Provider Nurse Practitioner Adult Health
DX: O03.9 Complete or unspecified spontaneous abortion without complication (principal)
CPT/HCPCS: 84702

== ENCOUNTER → 2022-08-04 13:59 | Outpatient (CLI) | payer OTHER, MEDICAID, SELFPAY ==
[2022-07-20 12:41] VITALS: BMI 25.2
[2022-08-04 19:33] LABS: HEMOLYSIS < 15 (0-50); Iron 63 ug/dL (37-170)
[2022-08-04 19:37] LABS: Alanine Aminotransferase 18 IU/L (<35); Albumin 4.2 g/dL (3.5-5.0); Albumin Globulin Ratio 1.3 (1.0-2.8); Alkaline Phosphatase 49 U/L (38-126); Aspartate Aminotransferase 29 IU/L (14-36); BUN Creatinine Ratio 15.4 (6-22); Bilirubin Total 0.3 mg/dL (0.2-1.3); Blood Urea Nitrogen 10 mg/dL (7-17); Calcium 9.3 mg/dL (8.4-10.2); Carbon Dioxide 23 mmol/L (22-32); Chloride 102 mmol/L (98-107); Estimated Glomerular Filt Rate > 60 mL/min (>60); Globulin 3.2 g/dL (1.7-4.1); Glucose 102 mg/dL (70-100); HEMOLYSIS < 15 (0-50); Potassium 4.2 mmol/L (3.4-5.1); Sodium 136 mmol/L (137-145); Total Protein 7.4 g/dL (6.3-8.2)
[2022-08-04 19:38] LABS: Add Manual Diff / Slide Review NO; Basophils Absolute Auto 0 /uL (0-100); Basophils Percent Auto 0.3 % (0-2); Eosinophils Absolute Auto 0 /uL (0-450); Eosinophils Percent Auto 0.6 % (2-4); Hematocrit 34.9 % (36-46); Hemoglobin 11.5 g/dL (12.0-16.0); Lymphocytes Absolute Auto 1200 /uL (1100-4500); Lymphocytes Percent Auto 18.2 % (25-40); Mean Corpuscular HGB Conc 32.8 % (30-36); Mean Corpuscular Hemoglobin 25.4 PG (26-34); Mean Corpuscular Volume 77.3 fL (80-100); Monocytes Absolute Auto 500 /uL (0-900); Monocytes Percent Auto 6.8 % (3-14); Neutrophils Absolute Auto 5000 /uL (1500-7000); Neutrophils Percent Auto 74.1 % (50-75); Platelet Count 233 X10^3/uL (150-400); Red Blood Cell Count 4.51 X10^6/uL (4.0-5.2); Red Cell Distribution Width 16.6 % (11.6-14.8); White Blood Cell Count 6.8 X10^3/uL (4.5-11.0)
[2022-08-04 19:52] LABS: Percent Iron Saturation 14 % (15-50); Total Iron Binding Capacity 454 ug/dL (265-497); Transferrin 345 mg/dL (206-381)
[2022-08-04 20:12] LABS: Ferritin 6 ng/mL (6-137)
[2022-08-04 20:28] LABS: Vitamin B12 684 pg/mL (239-931)
== END ==
PROVIDERS: PCP Physician Assistant; Visit Provider Physician Assistant
DX: D64.9 Anemia, unspecified (principal); D50.9 Iron deficiency anemia, unspecified
CPT/HCPCS: 80053; 82607; 82728; 83540; 83550; 85025

== ENCOUNTER → 2024-01-24 15:22 | Outpatient (CLI) | payer OTHER, MEDICAID, SELFPAY ==
[2022-07-20 12:41] VITALS: BMI 25.2
== END ==
PROVIDERS: PCP Physician Assistant; Visit Provider Physician Assistant
DX: J02.9 Acute pharyngitis, unspecified (principal)
CPT/HCPCS: 87070

== ENCOUNTER → 2024-02-01 12:51 | Outpatient (CLI) | payer OTHER, MEDICAID, SELFPAY ==
[2022-07-20 12:41] VITALS: BMI 25.2
[2024-02-01 19:50] LABS: Hematocrit 34.5 % (36-46); Mean Corpuscular Hemoglobin 24.4 PG (26-34); Mean Corpuscular Volume 76.3 fL (80-100); Platelet Count 236 X10^3/uL (150-400); Red Blood Cell Count 4.52 X10^6/uL (4.0-5.2); Red Cell Distribution Width 17.3 % (11.6-14.8); White Blood Cell Count 5.9 X10^3/uL (4.5-11.0)
[2024-02-01 19:58] LABS: Alanine Aminotransferase 11 IU/L (<35); Albumin 4.5 g/dL (3.5-5.0); Albumin Globulin Ratio 1.7 (1.0-2.8); Alkaline Phosphatase 65 U/L (38-126); Aspartate Aminotransferase 29 IU/L (14-36); Bilirubin Total 0.4 mg/dL (0.2-1.3); Blood Urea Nitrogen 11 mg/dL (7-17); Calcium 9.4 mg/dL (8.4-10.2); Carbon Dioxide 24 mmol/L (22-32); Chloride 104 mmol/L (98-107); Estimated Glomerular Filt Rate > 60 mL/min (>60); Globulin 2.6 g/dL (1.7-4.1); Glucose 88 mg/dL (70-100); HEMOLYSIS < 15 (0-50); Potassium 3.7 mmol/L (3.4-5.1); Sodium 138 mmol/L (137-145); Total Protein 7.1 g/dL (6.3-8.2)
[2024-02-01 20:24] LABS: TSH w/ Reflex to FT4 0.63 uIU/mL (0.47-4.68)
[2024-02-01 20:40] LABS: Monotest Negative (Negative); Neutrophils Absolute Manual 3894 /uL (3000-5900); Total Cells Counted 100
[2024-02-01 20:43] LABS: Hypochromasia 1+; Toxic Vacuolation Present
== END ==
PROVIDERS: PCP Physician Assistant; Visit Provider Physician Assistant
DX: D64.9 Anemia, unspecified (principal); R53.83 Other fatigue
CPT/HCPCS: 80053; 84443; 85025; 86318

== ENCOUNTER → 2024-02-09 10:37 | Outpatient (CLI) | payer OTHER, MEDICAID, SELFPAY ==
[2022-07-20 12:41] VITALS: BMI 25.2
[2024-02-09 19:12] LABS: Add Manual Diff / Slide Review NO; Basophils Absolute Auto 0 /uL (0-100); Basophils Percent Auto 0.6 % (0-2); Eosinophils Absolute Auto 100 /uL (0-450); Eosinophils Percent Auto 1.1 % (2-4); Hemoglobin 10.7 g/dL (12.0-16.0); Lymphocytes Absolute Auto 1200 /uL (1100-4500); Lymphocytes Percent Auto 22.6 % (25-40); Mean Corpuscular HGB Conc 32.4 % (30-36); Mean Corpuscular Hemoglobin 24.5 PG (26-34); Mean Corpuscular Volume 75.6 fL (80-100); Monocytes Absolute Auto 600 /uL (0-900); Monocytes Percent Auto 10.9 % (3-14); Neutrophils Absolute Auto 3500 /uL (1500-7000); Neutrophils Percent Auto 64.8 % (50-75); Platelet Count 235 X10^3/uL (150-400); Red Blood Cell Count 4.36 X10^6/uL (4.0-5.2); Red Cell Distribution Width 17.1 % (11.6-14.8); White Blood Cell Count 5.4 X10^3/uL (4.5-11.0)
[2024-02-09 19:15] LABS: HEMOLYSIS < 15 (0-50); Iron 51 ug/dL (37-170)
[2024-02-09 19:26] LABS: Percent Iron Saturation 12 % (15-50); Total Iron Binding Capacity 442 ug/dL (265-497); Transferrin 332 mg/dL (206-381)
[2024-02-09 19:55] LABS: Ferritin 5 ng/mL (6-137)
[2024-02-09 20:26] LABS: Vitamin B12 818 pg/mL (239-931)
== END ==
PROVIDERS: PCP Physician Assistant; Visit Provider Physician Assistant
DX: D50.9 Iron deficiency anemia, unspecified (principal)
CPT/HCPCS: 82607; 82728; 82746; 83540; 83550; 85025

== ENCOUNTER 2024-05-19 09:03 | Emergency (ER) | payer SELFPAY ==
[2022-07-20 12:41] VITALS: BMI 25.2
[2024-05-19] VITALS (7 sets, daily range): BP systolic 113–120; BP diastolic 64–89; PULSE 71–91; RESP 17; TEMP 36.8; O2SAT 99–100; BMI 20.9
--- NOTE | 2024-05-19 10:15 | ED.HA ---
HPI - Headache General Chief Complaint: Headache Stated Complaint: Has a bad headache Time Seen by Provider: 05/19/24 10:11 Mode of arrival: Ambulatory History of Present Illness HPI Narrative: 24-year-old female with a history of recurrent headaches, now with 2 days duration of bitemporal headache, more often usually behind left eye. No injury or trauma. No [id number] medications tried. She has had some nausea without emesis. No weakness to face arm or leg. No numbness to face arm or leg. She has some photophobia. No problems moving her neck Related Data Home Medications Medication Instructions Recorded Confirmed ibuprofen 600 mg tablet 600 mg PO Q6H PRN Headache 05/19/24 05/19/24 Previous Rx's Medication Instructions Recorded drospirenone 3 mg-ethinyl 1 tab PO DAILY #84 tabs 07/28/22 estradiol 0.03 mg tablet (Carla (28)) sertraline 50 mg tablet 50 mg PO DAILY #30 tabs 02/08/24 ferrous sulfate 325 mg (65 mg 325 mg PO DAILY #30 tabs 02/13/24 iron) tablet prochlorperazine maleate 10 mg 10 mg PO BID PRN headache, nausea 05/19/24 tablet (Compazine) #4 tabs Allergies Allergy/AdvReac Type Severity Reaction Status Date / Time No Known Drug Allergies Allergy Verified 05/19/24 09:31 Review of Systems Review of Systems Narrative: see HPI Patient History Medical History (Updated 05/19/24 @ 12:15 by Kev Varma MD) Iron deficiency anemia Severe dysmenorrhea Contraceptive management , location unknown Depression Suicidal ideation Surgical History H/O thumb surgery Family History Grandfather Myocardial infarction Grandmother Diabetes mellitus Father Medical history unknown Mother Alive and well Social History household members: family and other Smoking Status: Never smoker alcohol intake: former Smoking Status: Never smoker Substance Use Type: does not use Exam Narrative Exam Narrative: GENERAL: Well-developed patient, in mild distress. HEAD: Atraumatic. Normocephalic. EYES: Pupils equal round and reactive. Extraocular motions intact. No scleral icterus. No injection or drainage. ENT: Nose without bleeding, purulent drainage. Throat without erythema, tonsillar hypertrophy or exudate. Airway patent. NECK: Trachea midline. Non tender. Moves neck well CARDIOVASCULAR: Regular rate and rhythm without murmurs, gallops, or rubs. RESPIRATORY: Clear to auscultation. Breath sounds equal bilaterally. No wheezes, rales, or rhonchi. GASTROINTESTINAL: Abdomen soft, non-tender, nondistended. EXTREMITIES: No edema or joint tenderness. BACK: Nontender without deformity or crepitance. No flank tenderness. NEURO: AOx3. Motor functions grossly nonfocal SKIN: No rash or erythema of visible areas Initial Vital Signs Initial Vital Signs: Vital Signs Temperature 98.3 F 05/19/24 09:22 Pulse Rate 91 H 05/19/24 09:22 Respiratory Rate 17 05/19/24 09:22 Blood Pressure 113/79 05/19/24 09:22 Pulse Oximetry 99 05/19/24 09:22 Oxygen Delivery Method Room Air 05/19/24 09:22 Course Orders Ordered: Discontinued Medications Diphenhydramine HCl (Diphenhydramine 50 Mg/Ml Vial) 25 mg IV NOW ONE Stop: 05/19/24 10:28 Last Admin: 05/19/24 11:55 Dose: Not Given Documented By: NOEMÍ Sodium Chloride (Normal Saline 0.9%) 1,000 mls @ 1,000 mls/hr IV BOLUS ONE Stop: 05/19/24 11:26 Last Infusion: 05/19/24 11:55 Dose: Infused Documented By: Admin: 05/19/24 10:48 Dose: 1,000 mls/hr Documented By: NOEMÍ Ketorolac Tromethamine (Ketorolac 30 Mg/Ml Vial) 15 mg IV NOW ONE Stop: 05/19/24 10:28 Last Admin: 05/19/24 10:48 Dose: 15 mg Documented By: NOEMÍ Prochlorperazine (Prochlorperazine 10 Mg/2 Ml Vial) 5 mg IV NOW ONE Stop: 05/19/24 10:28 Last Admin: 05/19/24 11:55 Dose: Not Given Documented By: NOEMÍ Vital Signs Vital signs: Vital Signs - 8 hr 05/19/24 09:22 05/19/24 10:36 05/19/24 10:37 Temperature 98.3 F Pulse Rate 91 H 71 72 Respiratory Rate 17 Blood Pressure 113/79 Pulse Oximetry 99 100 100 Oxygen Delivery Method Room Air 05/19/24 10:37 05/19/24 11:00 05/19/24 11:00 Temperature Pulse Rate 72 Respiratory Rate Blood Pressure 113/75 119/89 Pulse Oximetry 100 Oxygen Delivery Method 05/19/24 11:30 05/19/24 11:30 Temperature Pulse Rate 78 Respiratory Rate Blood Pressure 114/73 Pulse Oximetry 100 Oxygen Delivery Method MDM - Headache Lab Data Labs: Point of Care Testing Test Results Negative Urine Dip Bedside Urine Glucose Negative Bedside Urine Bilirubin - Negative Bedside Urine Ketone - Negative Urine Specific [place] 1.010 Bedside Urine Occult Blood - Negative Bedside Urine pH 6.0 Bedside Urine Protein - Negative Bedside Urine Urobilinogen - Negative Bedside Urine Nitrite - Negative Bedside Urine Leukocytes - Negative Esterase MDM Narrative Medical decision making narrative: 24-year-old female with history of recurrent headaches, now 2 days duration bitemporal headache, no focal neuro exam. Afebrile, sirs screen negative. Nontoxic appearing. She drove herself, does not have a ride home. For now we will avoid sedating medications. IV fluids, IV Toradol. IV Compazine and Benadryl also ordered, hold for now given lack of ride. Patient has some improvement on symptoms, still does not have any access to ride, will be driving herself, hold IV Compazine/Benadryl. She would like to try the Compazine orally once at home, even though she was informed it is less effective that route. Sent eRx Compazine to local pharmacy, so that she can fill it and take it when she gets home. Return precautions discussed Discharge Plan Departure Patient Disposition: Home Clinical Impression: Headache Activity Restrictions/Additional Instructions: Bitemporal headache, history of recurrent headaches, IV Toradol and fluids given, some partial improvement of symptoms. We did discuss IV Compazine along with Benadryl, however this can be sedating, and you drove herself. You would like to have Compazine in oral form, less effective that way, but can be tried, prescription sent to local pharmacy to be filled, but taken once your back home [facility]. Consider [id number] Benadryl to take if you should have any side effects of the Compazine, some persons can become jittery with Compazine, though it is more common with injectable/intravenous formulation. No fever, moving neck well. No CT head brain imaging done today, no spinal tap indicated at present. These test however could be considered if you should have worsening of symptoms or persistence of symptoms. Recheck tomorrow if headache symptoms persisting. Recheck earlier at any time for any change worsening symptoms or any concerns prior Prescriptions: New prochlorperazine maleate [Compazine] 10 mg tablet 10 mg PO BID PRN (Reason: headache, nausea) Qty: 4 0RF No Action ferrous sulfate 325 mg (65 mg iron) tablet 325 mg PO DAILY Qty: 30 2RF ibuprofen 600 mg Tablet 600 mg PO Q6H PRN (Reason: Headache) drospirenone-ethinyl estradiol [Carla (28)] 3-0.03 mg tablet 1 tab PO DAILY Qty: 84 4RF Rx Instructions: Take 21 tabs, skip placebo week and repeat with new pill pack. sertraline 50 mg tablet 50 mg PO DAILY MDD 50mg Qty: 30 2RF Referrals: Gretta Wilkins PA-C [Primary Care Provider] - Stand Alone Forms: Patient Portal/API
--- NOTE | 2024-05-19 10:27 | PC.NURSE ---
[address] Varma at this time for IV, NS bolus 1L, 5mg IV Compazine, 25 mg IV Bendaryl, and 15 mg IV toradol.
[2024-05-19] MEDS: SODIUM CHLORIDE 0.9% 1,000 ML 1000 ML IV (10:48)
[2024-05-19] MEDS: KETOROLAC 30 MG/ML VIAL 15 MG IV (10:48)
--- NOTE | 2024-05-19 10:49 | PC.NURSE ---
Patient drove herself, Compazine and bendaryl are being held at this time until patient can find a ride.
--- NOTE | 2024-05-19 11:48 | PC.NURSE ---
Patient still unable to get a ride home to [facility]. After multiple conversations with the patient and with Dr. Varma, the patient was presented with the option to be given the IV meds and then sleep here and wait until she is safe to drive OR to go home with prescription for some compazine and take her own benadryl and compazine at home. Patient reports she would like to go home and take medication there. Dr. Varma informed and aware.
== END 2024-05-19 12:27 | disposition home or self-care (01) ==
PROVIDERS: Emergency Provider Emergency Medicine; PCP Physician Assistant
DX: R51.9 Headache, unspecified (principal)
CPT/HCPCS: 36415; 81003; 81025; 96361; 96374; 99284; J1885

== ENCOUNTER 2025-08-01 15:04 | Emergency (ER) | payer SELFPAY ==
[2022-07-20 12:41] VITALS: BMI 25.2
[2025-08-01 15:19] VITALS: BP 149/87; PULSE 80; RESP 16; TEMP 36.5; O2SAT 100; BMI 22.4
[2025-08-01 17:21] VITALS: BP 122/76; PULSE 88; RESP 20; O2SAT 100
--- NOTE | 2025-08-01 18:26 | ED_ITS ---
HPI - Recheck/Abnormal Lab/Rx General Chief Complaint: Recheck/Abnormal Lab/Rx Stated Complaint: L side cheek numb/worsening ear infection Time Seen by Provider: 08/01/25 18:26 Source: patient Mode of arrival: Ambulatory History of Present Illness HPI narrative: Patient is a 25-year-old female no pertinent past medical history comes into the ED from home for evaluation of left ear/left-sided jaw pain started today, states that she is feeling have some difficulty eating secondary to the pain, she states that she has started taking antibiotics 2 days ago with some mild improvement of the ear but has persistent pain to the left jaw. She denies any difficulty seeing, denies any other symptoms such as headache visual disturbance chest pain shortness breath fever chills nausea vomiting abdominal pain or any other GI/ symptoms at this time. Related Data Previous Rx's ?Medication ?Instructions ?Recorded drospirenone 3 mg-ethinyl 1 tab PO DAILY #84 tabs 07/13 03/03 estradiol 0.03 mg tablet (Carla (28)) ferrous sulfate 325 mg (65 mg 325 mg PO DAILY #30 tabs 02/13/24 iron) tablet sertraline 25 mg tablet 25 mg PO .COMPLEX #60 tabs 0 10/23/24 amoxicillin 875 mg-potassium 1 tab PO BID 2 weeks #28 tabs 08/01/25 clavulanate 125 mg tablet Allergies Allergy/AdvReac Type Severity Reaction Status Date / Time No Known Drug Allergies Allergy Verified 04/01/25 14:40 Review of Systems Review of Systems Narrative: General: Denies fever, chills, weight loss HEENT: Positive left ear pain, positive left throat pain, Denies headache, eye drainage, eye irritation, head trauma, sore throat, voice change Cardiovascular: Denies any chest pain, palpitations, tachycardia Respiratory: Denies any shortness of breath, cough, wheeze, stridor GI/: Denies any abdominal pain, nausea, vomiting, diarrhea, bright red blood per rectum, melanotic stools, urinary frequency, urinary retention, dysuria, hematuria MSK: Denies any joint pain, muscle pains, swelling Skin: Denies any rashes, lesions, discoloration Neuro: Denies any headache, lightheadedness, dizziness, fainting, weakness Psych: Denies SI/HI Patient History Medical History (Updated 08/01/25 @ 18:34 by Misael Schmidt DO) Iron deficiency anemia Severe dysmenorrhea Contraceptive management , location unknown Depression Suicidal ideation Surgical History H/O thumb surgery Family History Grandfather Myocardial infarction Grandmother Diabetes mellitus Father Medical history unknown Mother Alive and well Social History household members: family and other alcohol intake: former Exam Narrative Exam Narrative: General: Cooperative, well-developed, not in acute distress HEENT: Normocephalic, atraumatic, PERRLA, normal sclera, eyelids normal, patient with some mild submandibular swelling to the left but no overlying erythema ecchymosis tenderness to palpation, no periapical abscess noted since speaking full sentences protecting airway no voice changes no stridor no trismus, bilateral tympanic membranes clear Neck: Active full range of motion, atraumatic Chest: Normal to inspection, negative crepitus, no overlying erythema ecchymosis Respiratory: Normal respiratory effort, not in acute respiratory distress, clear to auscultation bilaterally negative cough, wheeze, tachypnea, rhonchi, rales Cardiology: Regular rate rhythm negative gallop, murmur, rubs GI/: No tenderness to palpation, soft, non rigid, normal to inspection, exam deferred MSK: Full active range of motion in all 4 extremities, atraumatic, no tenderness to palpation of any bony prominences Skin: No rashes or lesions noted Neuro: Alert awake oriented x3, moves all 4 extremities spontaneously, cranial nerves intact, able to answer all questions appropriately follows commands appropriately Psych: Cooperative, negative suicidal or homicidal ideations Initial Vital Signs Initial Vital Signs: Vital Signs Temperature 97.7 F 08/01/25 15:19 Pulse Rate 80 08/01/25 15:19 Respiratory Rate 16 08/01/25 15:19 Blood Pressure 149/87 H 08/01/25 15:19 Pulse Oximetry 100 08/01/25 15:19 Oxygen Delivery Method Room Air 08/01/25 15:19 Course Vital Signs Vital signs: Vital Signs - 8 hr 08/01/25 15:19 08/01/25 17:21 Temperature 97.7 F Pulse Rate 80 88 Respiratory Rate 16 20 Blood Pressure 149/87 H 122/76 Pulse Oximetry 100 100 Oxygen Delivery Method Room Air Room Air MDM - Recheck/Abnormal Lab/Rx MDM Narrative Medical decision making narrative: Patient is a 25-year-old female presenting for swelling to the left jaw, she states that she was given antibiotics for 2 days by telehealth has completed this not having any ear discomfort but states that today she noticed some swelling to the left side of her jaw, she is speaking in full sentences protecting airway no voice changes no stridor no trismus, on my exam there is some mild submandibular swelling, did note patient with a cracked tooth to the back molars, most likely consistent with a dental abscess but no periapical abscess noted, she will be started on antibiotics instructed to follow up with dentist very in an outpatient setting, she verbalized understanding agrees to being discharged home with outpatient follow up Discharge Plan Departure Patient Disposition: Home Clinical Impression: Abscess, dental Instructions: Tooth Abscess Activity Restrictions/Additional Instructions: Please go to a dentist for her continued evaluation treatment of your dental abscess Please read the discharge instructions sheet carefully and bring all papers to all doctor follow-up visits, as it may contain information that your doctor may want to see. Disease processes change and evolve, if your symptoms worsen or if you develop any new symptoms that are concerning to you please return for evaluation. Your evaluation today does not show any evidence of any life- threatening/serious illnesses requiring admission to the hospital or surgery. Please follow-up with your doctor for re-evaluation in approximately 1 day. Seek immediate medical attention for any worrisome symptoms. *If you do not have a primary care provider please contact the [facility] Resource line at [phone]. They will ask some questions about your medical history and help get you set up with a doctor in the community. Prescriptions: New amoxicillin-pot clavulanate 875-125 mg tablet 1 tab PO BID 14 Days Qty: 28 0RF No Action ferrous sulfate 325 mg (65 mg iron) tablet 325 mg PO DAILY Qty: 30 2RF sertraline 25 mg tablet 25 mg PO .COMPLEX Qty: 60 3RF Rx Instructions: 25 mg orally Daily times 7 days and then increase to 2 tabs (50mg total) michaela y thereafter.; drospirenone-ethinyl estradiol [Carla (28)] 3-0.03 mg tablet 1 tab PO DAILY Qty: 84 4RF Rx Instructions: Take 21 tabs, skip placebo week and repeat with new pill pack. Referrals: Gretta Wilkins PA-C [Primary Care Provider, Medical] Stand Alone Forms: Patient Portal/API
[2025-08-01] MEDS: AMOXICILLIN/CLAV 875/125 MG 1 TAB PO (18:43)
[2025-08-01 18:52] VITALS: BP 120/7; PULSE 85; RESP 18; O2SAT 99
== END 2025-08-01 18:54 | disposition home or self-care (01) ==
PROVIDERS: Emergency Provider Student in an Organized Health Care Education/Training Program; PCP Physician Assistant
DX: K04.7 Periapical abscess without sinus (principal)
CPT/HCPCS: 99283